=== PATIENT | male | born 1960 | race Caucasian/White ===

== ENCOUNTER 2024-01-07 12:47 | Emergency (ER) | payer MEDICAID, SELFPAY ==
[2024-01-07 12:50] VITALS: BP 118/66; PULSE 86; RESP 18; TEMP 36.8; O2SAT 94
--- NOTE | 2024-01-07 14:00 | DI.CT_ITS ---
Exam(s) CT ABDOMEN PELVIS W EXAM: CT ABDOMEN PELVIS W CLINICAL HISTORY: abdominal pain, eval for seroma, infection or abno. TECHNIQUE: Imaging Protocol: Axial computed tomography images with coronal and sagittal reformatted images were created and reviewed CONTRAST MATERIAL: Intravenous: Omnipaque 350 Contrast volume:100 ml Oral: no COMPARISON: No exams were available for comparison FINDINGS: ABDOMEN and PELVIS: Lung Bases: Increased densities at right lower lobe suspicious for pneumonia. Esophageal pull-throug h.. Liver: Normal density. No suspicious mass. Gallbladder and biliary tract: No radiodense calculus. No biliary dilation. Pancreas: Normal density. No abnormal calcifications or inflammatory process. No evidence of mass. Spleen: Normal. Kidneys: Normal size, contour and axis. No radiodense stones. No obstructive uropathy. No suspicious masses seen. Adrenal glands: No masses seen. Vasculature: Severe atherosclerotic changes. Marked mural at regularity. Dilated to a diameter of 3 .5 cm. Iliac and femoral arteries appear patent. Soft tissues: Left upper quadrant feeding tube without surrounding fluid or hernia. Bladder: No gross wall thickening. No calculi.No focal mass. Bowel: No obstruction. No bowel wall thickening. Appendix normal.Mild sigmoid diverticulosis. Peritoneal cavity: No ascites. No focal collection. No mesenteric inflammatory response. Bones: Degenerative changes and degenerative scoliosis. Reproductive organs: Prostate unremarkable. Bilateral hydroceles, right greater than left. Lymph nodes: No pathologically enlarged lymph nodes. IMPRESSION:: Right lower lobe pneumonia. No acute abnormality in the abdomen or pelvis. Gastric pull-through appears unremarkable. Feeding tube in place without complication. RADIATION DOSE DELIVERED: 844.63mGy.cm Total DLP DATA REPOSITORY: All CT scans at this facility are submitted to the National Radiology Data Registry (NRDR) Dose Index Registry (DIR) with the [employer] ([employer]). RADIATION OPTIMIZATION: All CT scans at this facility use at least one of these dose optimization te chniques: automated exposure control; mA and/or kV adjustment per patient size (includes targeted exa ms where dose is matched to clinical indication); or iterative reconstruction.
[2024-01-07] MEDS: Dicyclomine 20 MG TAB PO (14:21)
[2024-01-07] MEDS: Lactated Ringers 1,000 ML 1000 ML IV (14:28)
[2024-01-07] MEDS: MORPHine 4 MG/ML SYR IVP ×2 (14:28→16:55)
[2024-01-07 14:31] LABS: HCT 36.1 % (40.0-50.0); HGB 11.9 g/dL (13.5-17.5); MCH 30.1 pg (27.0-33.0); MCV 91 fL (80-95); MPV 8.7 fL (8.0-11.0); Platelet Count 526 10^3/uL (130-400); RBC 3.95 10^6/uL (4.36-5.78); RDW 12.6 % (11.8-14.1); RDW-SD 41.4 fL; WBC 15.83 10^3/uL (4.4-10.8)
[2024-01-07] MEDS: Normal Saline - Diluent 50 ML VIAL IJ (14:48)
[2024-01-07] MEDS: Omnipaque 350 MG/ML 100 ML BTL IJ (14:48)
--- NOTE | 2024-01-07 14:54 | ED.GENADUL_ITS ---
Discharge Plan Disposition Patient Disposition: Home Condition: Good Discharge Details Clinical Impression: Chronic pneumonia, Nausea & vomiting, Abdominal pain Primary Care Provider: Chavo España ED Provider: Charbel Maurice Home Meds and New Rx's Prescriptions: New ondansetron 4 mg tablet,disintegrating 4 mg PO Q8H Qty: 20 0RF Discharge Instructions Instructions: Acute Nausea and Vomiting (ED), Pneumonia (ED) Additional Instructions: At this time your labs show continued mild dehydration. You have been rehydrated here with a liter of lactated Ringer's. Your white count is improving. Your pneumonia still requires to continue treatment with the levofloxacin antibiotics that you are receiving. As we discussed together your pain needs are complex, especially in light of your chronic medical conditions. Thankfully your CAT scan showed no signs of obstruction, abscess, or new problem. As we discussed, please cut your fentanyl patches in half, and use those as otherwise directed to help see if we can diminish the foggy feeling and still achieve adequate pain control. Please take your oxycodone's only as needed with a maximum of 5 mg every 6 hours while on the fentanyl patches. You may require further titration of your pain medications. You are taking Compazine, please take the Zofran only as needed for breakthrough nausea. This may cause some mild interactions with some of your other medications if you take them greater then the frequency that was prescribed. If you notice any worsening of your symptoms, or any new symptoms such as vomiting, diarrhea, fever, chills, shortness of breath, chest pain, numbness, weakness, or fainting , please return immediately to the emergency department for reevaluation. Please follow up with your primary care provider as soon as possible for reassessment and reevaluation. As always, it was a pleasure participating in your medical care today. Referrals: Chavo España MD [Primary Care Provider] - Discharge Data Discharge Date/Time-TO BE ENTERED AT DEPARTURE: 01/07/24 17:00 HPI General Date/Time Provider Initiated Documentation: 01/07/24 13:33 . 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 About a week or so ago the patient was at [facility] where imaging and laboratory workup was performed with no acute process being identified. He presented at that time for chronic abdominal pain. Unfortunately he still has had persistent pain, which has not improved with time. He feels depressed, like he cannot do anything. He was transition to the fentanyl patch which made him drowsy, and so he only did this for a day or so. He then stopped this and went back onto the oral oxycodones. He feels that the oxycodone is not managing his pain appropriately, which was why he was switched to the fentanyl patch. He presents today for a second set of eyes he still has significant generalized abdominal pain which is unremitting. He admits to constant regular vomiting which appears to be just mild mucus like vomitus, but not true stomach/duodenum expectoration. He denies any blood in his vomitus. He denies any fever or chills. He has been taking his medications as directed otherwise. He sees Dr. España at [facility] No other complaints at this time. No other modifying factors. Related Data Home Medications Medication Instructions Recorded Confirmed ondansetron 4 mg disintegrating 4 mg PO Q8H #20 tabs 01/07/24 tablet Previous Rx's Medication Instructions Recorded ondansetron 4 mg disintegrating 4 mg PO Q8H #20 tabs 01/07/24 tablet Allergies Allergy/AdvReac Type Severity Reaction Status Date / Time lisinopril AdvReac Unknown Verified 01/07/24 12:55 General Stated Complaint: Abd Prob XIOMARA: 3 Review of Systems All systems reviewed & are unremarkable except as noted in HPI and below Exam Narrative Exam Narrative: 1.Const: Thin, cachectic appearing male 2.Eyes: PERRL, no conjunctival injection, and symmetrical lids. 3.ENT: Atraumatic external nose and ears. Moist MM. Neck: Symmetric, trachea midline, No thyromegaly. 4.CVS: +S1/S2, No murmurs or gallops. Peripheral pulses 2+ and equal in all extremities. Brisk capillary refill in all extremities. 5.RESP: Unlabored respiratory effort. Clear to auscultation bilaterally. No wheezes rales or rhonchi 6.GI: S surgical site is clean dry and intact. J-tube in place. No drainage erythema or redness. Mild generalized achiness throughout. No evidence of a rigid or surgical appearing abdomen. Bowel sounds are present but reduced. 7.MSK: Normocephalic/Atraumatic, Extremities w/o deformity or ttp No cyanosis or clubbing, Normal movement of all extremities 8.Skin: Warm, Dry. No rashes or lesions. 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 Sensation grossly intact, no focal neurologic deficits. 10.Psych: (AAO) x3. Appropriate mood and affect Course Vital Signs Vital signs: Vital Signs Temperature 36.8 C 01/07/24 12:50 Pulse 86 01/07/24 12:50 Respiratory Rate 18 01/07/24 12:50 Blood Pressure 118/66 01/07/24 12:50 Pulse Oximetry 94 01/07/24 12:50 Temperature 36.8 C 01/07/24 12:50 Temperature Source Skin 01/07/24 12:50 Pulse 86 01/07/24 12:50 Respiratory Rate 18 01/07/24 12:50 Respiratory Effort Normal 01/07/24 12:53 Blood Pressure 118/66 01/07/24 12:50 Blood Pressure Position Sitting 01/07/24 12:50 Pulse Oximetry 94 01/07/24 12:50 Oxygen Delivery Method Nasal Cannula 01/07/24 12:50 Oxygen Flow Rate 2 01/07/24 12:50 Pain Level 8 01/07/24 14:28 Medical Decision Making This is a 63-year-old male with past medical history significant for 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 About a week or so ago the patient was at [facility] where imaging and laboratory workup was performed with no acute process being identified. He presented at that time for chronic abdominal pain. Unfortunately he still has had persistent pain, which has not improved with time. He feels depressed, like he cannot do anything. He was transition to the fentanyl patch which made him drowsy, and so he only did this for a day or so. He then stopped this and went back onto the oral oxycodones. He feels that the oxycodone is not managing his pain appropriately, which was why he was switched to the fentanyl patch. He presents today for a second set of eyes he still has significant generalized abdominal pain which is unremitting. He admits to constant regular vomiting which appears to be just mild mucus like vomitus, but not true stomach/duodenum expectoration. He denies any blood in his vomitus. He denies any fever or chills. He has been taking his medications as directed otherwise. He sees Dr. España at [facility] No other complaints at this time. No other modifying factors. Also of note historically when the patient was last seen at [facility] he did have evidence of potential mild pneumonia, he was treated with levofloxacin for this and is nearly finished this prescription. Exam demonstrates a thin and cachectic male, mild abdominal achiness but no focal tenderness or signs of an acute surgical abdomen. Vital signs notably stable. I had a long discussion with the patient and his significant other at bedside, I discussed that our tools that we have here for evaluation are identical to the other emergency departments assessment capabilities. That being said we did discuss how there could be a new etiology underway in his abdomen that could be causing his symptoms. Patient would like a repeat assessment and further evaluation. I discussed chronic pain management, and potential etiologies that could be bringing about his chronic pain. I also discussed that we may not find an emergent etiology that requires intervention, but pain can still be persistent in spite of this and he understands. Will get a CT scan of the abdomen, laboratory workup, rehydrate the patient with a liter of electrolyte solution, give morphine at this time for mild pain control, monitor closely and reassess. [address] scan of the abdomen pelvis demonstrates still present right lower lobe pneumonia. Patient is still on levofloxacin for the pneumonia. No other acute process otherwise. Feeding tube is in place without complications per radiology. Laboratory workup does show evidence of some mild dehydration, mild white count of 15, no bandemia. Electrolytes otherwise stable. Lipase normal. Urinalysis shows no evidence of infection. I again had a long discussion with the patient and his significant other who is at bedside. We discussed that just because there is nothing emergent that we can find on our workup this does not in any way diminish the pain and sensation that he feels. That being said that we do not see evidence of an acute emergent etiology, we discussed options for continued pain management. At this time through shared decision-making process we have elected to try the fentanyl patches again, I recommended cutting them in half to see if they cause less drowsiness, and to use the oxycodone for breakthrough control as needed. Additionally in addition to the Compazine that the patient uses he still feels that he has persistent nausea. I did discuss adding Zofran for antiemetic components. I did discuss the need for caution with this while he is on the Levaquin as there can be some mild interaction. With the QT. He will use the Zofran only sparingly as needed. Additionally I discussed with he and his significant other the importance of continued close follow-up with his primary care provider and oncology team for Continued close management. Patient understands. Patient will be discharged home. Discussed red flags which to return. I have extensively reviewed the treatment plan and discharge instructions with the patient and their family. I have addressed all patient concerns at this time. The patient and family was made aware of what symptoms to monitor for that would warrant a return to the emergency department. Discussed the plan with the patient and family, they demonstrate verbal understanding and agreement with our assessment and plan at this time. The documentation in this chart was dictated using [employer] dictation software. Please excuse any dictation errors. FINDINGS: ABDOMEN and PELVIS: Lung Bases: Increased densities at right lower lobe suspicious for pneumonia. Esophageal pull-through.. Liver: Normal density. No suspicious mass. Gallbladder and biliary tract: No radiodense calculus. No biliary dilation. Pancreas: Normal density. No abnormal calcifications or inflammatory process. No evidence of mass. Spleen: Normal. Kidneys: Normal size, contour and axis. No radiodense stones. No obstructive uropathy. No suspicious masses seen. Adrenal glands: No masses seen. Vasculature: Severe atherosclerotic changes. Marked mural at regularity. Dilated to a diameter of 3.5 cm. Iliac and femoral arteries appear patent. Soft tissues: Left upper quadrant feeding tube without surrounding fluid or hernia. Bladder: No gross wall thickening. No calculi.No focal mass. Bowel: No obstruction. No bowel wall thickening. Appendix normal.Mild sigmoid diverticulosis. Peritoneal cavity: No ascites. No focal collection. No mesenteric inflammatory response. Bones: Degenerative changes and degenerative scoliosis. Reproductive organs: Prostate unremarkable. Bilateral hydroceles, right greater than left. Lymph nodes: No pathologically enlarged lymph nodes. IMPRESSION:: Right lower lobe pneumonia. No acute abnormality in the abdomen or pelvis. Gastric pull-through appears unremarkable. Feeding tube in place without complication. Quality:SDOH Health Related Social Needs: No Data to Display PFSH All Active Problems (Updated 01/07/24 @ 16:41 by Charbel Maurice DO) Abdominal pain (Acute) Nausea & vomiting (Acute) Chronic pneumonia (Acute) Social History Smoking/Tobacco Use Status: Former Tobacco Use Smoking risk assessment performed?: Yes Alcohol Intake: former Substance use type: does not use
[2024-01-07 14:55] LABS: Bilirubin Negative (Negative); Blood Negative (Negative); Clarity Clear (Clear); Glucose Negative (Negative); Ketones Negative (Negative); Leukocyte Esterase Negative (Negative); Nitrite Negative (Negative); Specific Gravity 1.025 (1.005-1.025)
[2024-01-07 15:03] LABS: Absolute Eosinophil Count 0.32 10^3/uL (0.0-0.7); Absolute Lymphocyte Count 3.48 10^3/uL (1.2-3.4); Absolute Monocyte Count 0.16 10^3/uL (0.1-0.8); Absolute Neutrophil Count 11.71 10^3/uL (1.2-6.7); Atypical Lymphocytes % 2 %
[2024-01-07 15:04] LABS: Absolute Basophil Count 0.16 10^3/uL (0.0-0.2); Diff Comment Manual Differential; RBC Morphology Normal
[2024-01-07 15:44] LABS: ALT 26 U/L (16-63); AST 19 U/L (15-37); Albumin 3.4 g/dL (3.4-5.0); Alkaline Phosphatase 206 U/L (46-116); Anion Gap 12.1 mmol/L (3-11); BUN 25 mg/dL (7-18); Bilirubin, Total 0.3 mg/dL (0.2-1.0); CO2 26.9 mmol/L (21.0-32.0); Calcium 9.9 mg/dL (8.5-10.1); Chloride 92 mmol/L (98-107); Estimated GFR 84.05 (mL/min/1.73m2); Glucose 113 mg/dL (74-106); Lipase 22 U/L (16-77); Potassium 3.5 mmol/L (3.5-5.1); Sodium 131 mmol/L (136-145); Total Protein 7.6 g/dL (6.4-8.2)
[2024-01-07 16:21] VITALS: BP 100/65; PULSE 89; RESP 18; TEMP 37.1; O2SAT 91
[2024-01-07] MEDS: Ondansetron 4 MG/2 ML VIAL IVP (16:55)
== END 2024-01-07 17:00 | disposition home or self-care (01) ==
PROVIDERS: Emergency Provider Student in an Organized Health Care Education/Training Program; PCP Internal Medicine Hematology & Oncology
DX: J18.9 Pneumonia, unspecified organism (principal); R11.2 Nausea with vomiting, unspecified; R10.84 Generalized abdominal pain; Z93.1 Gastrostomy status; Z87.891 Personal history of nicotine dependence
CPT/HCPCS: 36415; 80053; 83690; 96361; 96374; 96375; 96376; 99285; 74177; 81003; 85025; 99284; J2270; J2405; J3490